=== PATIENT | male | born 1940 | race Caucasian/White ===

== ENCOUNTER 2017-11-29 11:15 | Outpatient (CLI) | payer OTHER, MEDICARE ==
[~2017-11-29 11:15] MED LIST: CHOL100046 PO; CYAN-19 PO; HYDR-569 PO; INSU100V30 SQ; LISI-600 PO; METF500T PO; METO-395 PO; OSC500T PO; SIMV20TA PO
== END 2017-11-29 11:44 | disposition home or self-care (01) ==
LOC: WOUND CARE 11:15 → EDSTATUS 11:30 → WOUND CARE 11:44
PROVIDERS: ATTEND Surgery
DX: E11.622 Type 2 diabetes mellitus with other skin ulcer (principal); L98.491 Non-pressure chronic ulcer of skin of other sites limited to breakdown of skin; I10 Essential (primary) hypertension; K21.9 Gastro-esophageal reflux disease without esophagitis; E78.5 Hyperlipidemia, unspecified; Z79.01 Long term (current) use of anticoagulants; Z87.891 Personal history of nicotine dependence
CPT/HCPCS: 36416; 82948; 99211; A6021; A6206; A6212

== ENCOUNTER 2017-12-06 11:04 | Day surgery (SDC) | payer OTHER, MEDICARE ==
[2017-12-06] MEDS ORDERED: LIDOcaine 2% 5ml jelly ONE (12:31)
== END 2017-12-06 12:52 | disposition home or self-care (01) ==
LOC: WOUND CARE 11:04
PROVIDERS: ATTEND Surgery
DX: E11.622 Type 2 diabetes mellitus with other skin ulcer (principal); L98.491 Non-pressure chronic ulcer of skin of other sites limited to breakdown of skin; I10 Essential (primary) hypertension; K21.9 Gastro-esophageal reflux disease without esophagitis; E78.5 Hyperlipidemia, unspecified; Z79.01 Long term (current) use of anticoagulants; Z87.891 Personal history of nicotine dependence
CPT/HCPCS: 36416; 82948; 97597; A6021; A6206; A6212

== ENCOUNTER 2017-12-13 11:02 | Outpatient (CLI) | payer OTHER, MEDICARE ==
[2017-12-13] MEDS ORDERED: LIDOcaine 2% 5ml jelly ONE (12:09)
== END 2017-12-13 12:57 | disposition home or self-care (01) ==
LOC: WOUND CARE 11:02 → EDSTATUS 11:30 → WOUND CARE 12:57
PROVIDERS: ATTEND Surgery
DX: E11.622 Type 2 diabetes mellitus with other skin ulcer (principal); L98.491 Non-pressure chronic ulcer of skin of other sites limited to breakdown of skin; I10 Essential (primary) hypertension; K21.9 Gastro-esophageal reflux disease without esophagitis; E78.5 Hyperlipidemia, unspecified; Z87.891 Personal history of nicotine dependence
CPT/HCPCS: 36416; 82948; 99215; A6021; A6206; A6212

== ENCOUNTER 2018-01-03 11:05 | Outpatient (CLI) | payer OTHER, MEDICARE | END 2018-01-03 11:56 | disposition home or self-care (01) | LOC: WOUND CARE 11:05 → EDSTATUS 11:30 → WOUND CARE 11:56 | PROVIDERS: ATTEND Surgery | DX: E11.622 Type 2 diabetes mellitus with other skin ulcer (principal); L98.491 Non-pressure chronic ulcer of skin of other sites limited to breakdown of skin; I10 Essential (primary) hypertension; K21.9 Gastro-esophageal reflux disease without esophagitis; E78.5 Hyperlipidemia, unspecified; Z87.891 Personal history of nicotine dependence; Z79.01 Long term (current) use of anticoagulants | CPT/HCPCS: 36416; 82948; 99215 ==

== ENCOUNTER 2022-05-04 14:35 | Emergency (ER) | payer OTHER, MEDICARE ==
[~2022-05-04] VITALS: Ht 170.2 cm; Wt 68.2 kg
[~2022-05-04 14:35] MED LIST changes: -CYAN-19 PO; +CYAN-51 PO; +HYDR-4383 PO; -HYDR-569 PO; -LISI-600 PO; +LISI20TA28 PO
--- NOTE | 2022-05-04 19:45 | NUR ---
ASSUMED CARE OF PT. PT ROOMED IN BED 13. PT REPORTS THAT HE HAS NOT HAD ONE OF HIS "CONVULSIONS" TODAY. HE REPORTS NEVER LOSING CONSCIOUSNESS DURING CONVULSIONS. WHEN ASKED TO DESCRIBE CONVULSIONS HE STATES HIS ARMS START SUDDENLY FLAILING AND THAT WHAT SOLVES THESE CONVULSIONS IS HYDROCODONE. WHEN ASKED WHAT WAS DIFFERENT TODAY THAT CAUSED CONCERN TO BE SEEN IN THE ED, HE REPORTED HIS DAUGHTER SUGGESTED HE GET CHECKED OUT. HE ALSO REPORTS A RASH THROUGHOUT HIS ENTIRE BACK THAT STARTED 2 YEARS AGO BUT HAS NEVER BEEN SEEN BY A PROVIDER. WHEN I GAVE HIM A ROBE TO PUT ON SO THAT THE PROVIDER COULD SEE HIS RASH, HE REFUSED THE GOWN STATING THAT HE REFUSED ADMISSION AND THEREFORE REFUSED TO [facility].
[2022-05-04 20:51] LABS: BASOPHILS % (AUTO) 0.4 % (0-1); EOSINOPHILS # (AUTO) 0.5 X10'3 (0-0.9); EOSINOPHILS % (AUTO) 6.5 % (0-6); HEMATOCRIT 38.9 % (42.0-52.0); HEMOGLOBIN 13.5 g/dl (14.0-17.9); LYMPHOCYTES # (AUTO) 1.5 X10'3 (1.1-4.8); LYMPHOCYTES % (AUTO) 21.9 % (21-51); MEAN CORPUSCULAR HEMOGLOBIN 33.3 PG (27.0-31.0); MEAN CORPUSCULAR HGB CONC 34.6 g/dL (33.0-36.5); MEAN CORPUSCULAR VOLUME 96.1 FL (78-98); MEAN PLATELET VOLUME 7.9 FL (7.4-10.4); MONOCYTES # (AUTO) 0.8 X10'3 (0-0.9); MONOCYTES % (AUTO) 10.9 % (2-12); NEUTROPHILS # (AUTO) 4.2 X10'3 (1.8-7.7); NEUTROPHILS % (AUTO) 60.3 % (42-75); PLATELET COUNT 316 X10'3 (140-440); RED BLOOD COUNT 4.04 X10'6 (4.70-6.10); RED CELL DISTRIBUTION WIDTH 13.4 % (11.5-14.5)
[2022-05-04 21:08] LABS: ALANINE AMINOTRANSFERASE 16 U/L (12-78); ALBUMIN 4.1 G/DL (3.4-5.0); ALBUMIN/GLOBULIN RATIO 1.3 (1.1-1.5); ALKALINE PHOSPHATASE 98 IU/L (46-116); ANION GAP 6 (8-16); ASPARTATE AMINO TRANSFERASE 15 U/L (10-37); BILIRUBIN,TOTAL 0.5 MG/DL (0.1-1.0); BLOOD UREA NITROGEN 15 MG/DL (7-18); CHLORIDE 102 MMOL/L (99-107); CREATINE KINASE 62 U/L (39-308); CREATININE 1.07 MG/DL (0.60-1.10); GLUCOSE 101 MG/DL (70-104); SODIUM 138 MMOL/L (135-145); TOTAL CARBON DIOXIDE 30.1 MMOL/L (24-32); TOTAL PROTEIN 7.2 G/DL (6.4-8.2); eGFR 66 ML/MIN
[2022-05-04] MEDS ORDERED: MUPI22OI30 TOP (21:55)
[2022-05-04] MEDS ORDERED: HYDR28CR14 TOP (21:55)
[2022-05-04 22:21] VITALS: BP 140/80
== END 2022-05-04 22:23 | disposition home or self-care (01) ==
LOC: ER 14:36
DX: R25.2 Cramp and spasm (principal); R21 Rash and other nonspecific skin eruption; D64.9 Anemia, unspecified; R56.9 Unspecified convulsions; G89.29 Other chronic pain; I10 Essential (primary) hypertension; K21.9 Gastro-esophageal reflux disease without esophagitis; E11.9 Type 2 diabetes mellitus without complications; Z86.14 Personal history of Methicillin resistant Staphylococcus aureus infection; Z79.899 Other long term (current) drug therapy
CPT/HCPCS: 36415; 80053; 82550; 82948; 85025; 99283